=== PATIENT | male | born 1990 | race Caucasian/White ===

== ENCOUNTER → 2016-07-06 | Outpatient (REF) ==
[~2016-07-06] MED LIST: FLEXERIL 1010 MG/TAB PO; NORCO 325 MG-51 TAB PO; NORCO 325 MG-7.1 TAB PO; PERCOCET 325 MG1 TA2 PO; TYLENOL EXTRA500 M1
== END ==
LOC: WSOH 09:45
DX: Z02.89 Encounter for other administrative examinations (principal)

== ENCOUNTER → 2016-07-06 | Outpatient (REF) | LOC: WSOH 09:44 | DX: Z02.4 Encounter for examination for driving license (principal) ==

== ENCOUNTER → 2016-10-12 | Outpatient (REF) | LOC: WSOH 13:05 | DX: Z02.4 Encounter for examination for driving license (principal) ==

== ENCOUNTER → 2016-10-12 | Outpatient (REF) | LOC: WSOH 13:04 | DX: Z02.4 Encounter for examination for driving license (principal) ==

== ENCOUNTER → 2016-11-22 | Outpatient (REF) | LOC: WSOH 10:33 | DX: Z01.89 Encounter for other specified special examinations (principal) ==

== ENCOUNTER 2016-11-28 07:58 | Outpatient (RCR) | payer OTHER | END 2017-01-26 16:01 | LOC: WSOH 07:58 | DX: M54.5 Low back pain (principal); M62.830 Muscle spasm of back; X50.3XXA Overexertion from repetitive movements, initial encounter; Y99.0 Civilian activity done for income or pay ==

== ENCOUNTER → 2017-01-03 | Outpatient (REF) | LOC: WSOH 13:13 | DX: Z02.89 Encounter for other administrative examinations (principal) ==

== ENCOUNTER 2017-01-31 13:50 | Outpatient (RCR) | payer OTHER | END 2017-03-17 14:19 | disposition still patient (30) | LOC: WSOH 13:50 | DX: S51.811A Laceration without foreign body of right forearm, initial encounter (principal); W26.8XXA Contact with other sharp object(s), not elsewhere classified, initial encounter; Y99.0 Civilian activity done for income or pay ==

== ENCOUNTER → 2017-01-31 | Outpatient (REF) | LOC: WSOH 13:52 | DX: Z02.89 Encounter for other administrative examinations (principal) ==

== ENCOUNTER 2017-04-06 12:55 | Outpatient (RCR) | payer OTHER | END 2017-04-19 09:52 | disposition still patient (30) | LOC: WSOH 12:55 | DX: S76.011A Strain of muscle, fascia and tendon of right hip, initial encounter (principal); S80.01XA Contusion of right knee, initial encounter; S80.211A Abrasion, right knee, initial encounter; W13.2XXA Fall from, out of or through roof, initial encounter; Y99.0 Civilian activity done for income or pay ==

== ENCOUNTER 2018-01-26 09:21 | Outpatient (RCR) | payer OTHER | END 2018-02-07 14:08 | LOC: WSOH 09:21 | DX: S83.402A Sprain of unspecified collateral ligament of left knee, initial encounter (principal); F17.220 Nicotine dependence, chewing tobacco, uncomplicated ==

== ENCOUNTER → 2018-02-06 | Outpatient (CLI) | payer OTHER | LOC: COL.RAD 07:56 | DX: S83.242A Other tear of medial meniscus, current injury, left knee, initial encounter (principal); M67.864 Other specified disorders of tendon, left knee ==

== ENCOUNTER 2018-02-07 14:08 | Outpatient (RCR) | payer OTHER | END 2018-02-09 09:55 | disposition home or self-care (01) | LOC: WSOH 14:08 | DX: S83.402D Sprain of unspecified collateral ligament of left knee, subsequent encounter (principal); S83.222D Peripheral tear of medial meniscus, current injury, left knee, subsequent encounter; F17.220 Nicotine dependence, chewing tobacco, uncomplicated; W18.40XD Slipping, tripping and stumbling without falling, unspecified, subsequent encounter; Y93.H3 Activity, building and construction; Y92.59 Other trade areas as the place of occurrence of the external cause; Y99.0 Civilian activity done for income or pay ==

== ENCOUNTER 2018-10-04 09:17 | Outpatient (RCR) | payer OTHER | END 2018-10-08 09:45 | disposition home or self-care (01) | LOC: WSOH 09:17 | DX: Z02.89 Encounter for other administrative examinations (principal) ==